=== PATIENT | female | born 1945 | race Caucasian/White ===

== ENCOUNTER 2017-12-22 11:45 | Emergency (ER) | payer OTHER ==
[~2017-12-22] VITALS: Ht 167.6 cm; Wt 90.7 kg
[~2017-12-22 11:45] MED LIST: MASON NATURAL1200 MG PO; NORVASC 5MG TAB5 MG PO; SERTRALINE100 MG PO; VALIUM5 M1 PO; VITAMIN D1000 IU PO
--- NOTE | 2017-12-22 13:48 | RADIOLOGY REPORT ---
EXAMINATION: XR ANKLE, RIGHT CLINICAL INFORMATION: History of fall. Fracture. COMPARISON: None TECHNIQUE: AP, lateral, and mortise views of the right ankle. FINDINGS: Alignment is normal. The talar dome is well-positioned within the intact ankle mortise. Ankle joint space and syndesmotic space are normal. No acute fracture subluxation. A geographic, cortical based, 1.3 cm long lucency with sclerotic border of the lateral aspect of the distal tibial metaphysis is compatible with a nonossifying fibroma. No suspicious bone lesions. There is a large plantar calcaneal enthesophyte. Soft tissues are swollen around the ankle. Minimal atherosclerotic calcification of the dorsalis pedis artery. IMPRESSION: 1. No acute fracture or malalignment at the right ankle. 2. Diffuse soft tissue swelling around the ankle. 3. Large plantar calcaneal enthesophyte.
--- NOTE | 2017-12-22 14:44 | ED GENERAL ADULT ---
History of Present Illness General Chief Complaint: Foot or Ankle Injury Stated Complaint: RIGHT ANKLE PAIN S/P FALL Source: patient Exam Limitations: no limitations Vital Signs & Intake/Output Vital Signs & Intake/Output Vital Signs Date Time Temp Pulse Resp B/P B/P Pulse O2 O2 Flow FiO2 Mean Ox Delivery Rate 12/22 1500 98.2 74 20 140/70 99 Room Air 12/22 1156 98.4 96 20 112/58 96 Room Air Allergies Coded Allergies: NO KNOWN ALLERGIES (10/10/15) Reconcile Medications Amlodipine (Norvasc 5MG Tab) 5 MG TABLET 1 TAB PO DAILY BP (Reported) Cholecalciferol (Vitamin D3) 1,000 UNIT TABLET 1 TAB PO DAILY SUPPLEMENT ( Reported) Diazepam (Valium) 5 MG TABLET 1 TAB PO BID PRN muscle spasms OMEGA-3 FATTY ACIDS/FISH OIL (Fish Oil 1,200 MG Softgel) 360 MG-1,200 MG CAPSULE 1 SGL PO DAILY SUPPLEMENT (Reported) SERTRALINE HCL (Sertraline HCl) 100 MG TABLET 1 TAB PO DAILY DEPRESSION ( Reported) Triage Note: PT TO ED C/O RIGHT ANKLE PAIN S/P FALL LAST NIGHT. PT MISSED 1 STEP COMING DOWN, CAUSING HER TO FALL TO THE GROUND. DENIES HEADSTRIKE. PAIN IS WORSE WITH WEIGHT BEARING. SWELLING NOTED. PT AMBULATED IN AND OUT OF TRIAGE. DECLINING MEDS IN TRIAGE. DECLINING W/C. Triage Nurses Notes Reviewed? yes Onset: Abrupt Duration: day(s): Timing: constant HPI: 72 y/o female with h/o a-fib and HTN presenting with right ankle pain since last night. Reports she was walking down a flight and steps and missed the last step. Tripped and landed on an inverted ankle. Reports that she did not fall to the ground, was able to catch herself. Denies head strike. Denies numbness or paresthesias. (Odalis Lowry) Past History Travel History Traveled to [place] past 21 day No Medical History Any Pertinent Medical History? see below for history Cardiovascular: AFIB, hypertension Surgical History Surgical History: non-contributory Psychosocial History What is your primary language Kinyarwanda Tobacco Use: Quit >30 days ago ETOH Use: denies use Illicit Drug Use: denies illicit drug use Family History Hx Contributory? No (Odalis Lowry) Review of Systems Review of Systems Constitutional: Reports: no symptoms. EENTM: Reports: no symptoms. Respiratory: Reports: no symptoms. Cardiovascular: Reports: no symptoms. GI: Reports: no symptoms. Genitourinary: Reports: no symptoms. Musculoskeletal: Reports: see HPI. Skin: Reports: no symptoms. Neurological/Psychological: Reports: no symptoms. Hematologic/Endocrine: Reports: no symptoms. Immunologic/Allergic: Reports: no symptoms. (Odalis Lowry) Physical Exam Physical Exam General Appearance: well developed/nourished, no apparent distress, alert, awake , comfortable Head: atraumatic, normal appearance Eyes: Bilateral: normal appearance. Neck: normal inspection, full range of motion, no midline tenderness Respiratory: normal breath sounds, chest non-tender, lungs clear Cardiovascular: regular rate/rhythm Gastrointestinal: soft, non-tender Back: normal inspection, normal range of motion, no vertebral tenderness Extremities: on exam of the right ankle there is edema, no erythema, no abrasions, no increased warmth. +TTP over the lateral ankle. Mild decrease in ROM. Sensation intact. Motor strength mildly decreased. Pulses not palpable, but DP and PT are both audible with doppler. Able to bear weight, but ambulates with a limp favoring the left side. Neurologic/Psych: awake, alert, oriented x 3, normal mood/affect Skin: intact, normal color, warm/dry Core Measures ACS in differential dx? No CVA/TIA Diagnosis: No Sepsis Present: No Sepsis Focused Exam Completed? No (Odalis Lowry) Progress Differential Diagnoses I considered the following diagnoses in my evaluation of the patient: [ankle contusion vs sprain vs fx vs dislocation ] Plan of Care: Orders Procedure Date/time Status Durable Medical Equipment 12/22 1445 Active X-ray IMPRESSION: 1. No acute fracture or malalignment at the right ankle. 2. Diffuse soft tissue swelling around the ankle. 3. Large plantar calcaneal enthesophyte. Place in air cast Will f/u with PMD Counseled on supportive care and strict return precautions Initial ED EKG: none (Odalis Lowry) Departure Departure Disposition: HOME OR SELF CARE Condition: Stable Clinical Impression Primary Impression: Right ankle sprain Referrals: Dashawn Molina MD (PCP/Family) Additional Instructions: Keep ankle in air cast for stability. Use motrin as needed for pain. Use ice to help with swelling. Follow up with your primary care provider for re-evaluation. Return to the emergency department for any new or worsening symptoms. Departure Forms: Customer Survey General Discharge Information (Odalis Lowry) PA/MOLD YARD WORKER Co-Sign Statement Statement: ED Attending supervision documentation- x I saw and evaluated the patient. I have also reviewed all the pertinent lab results and diagnostic results. I agree with the findings and the plan of care as documented in the PA's/MOLD YARD WORKER's documentation. [] I have reviewed the ED Record and agree with the PA's/MOLD YARD WORKER's documentation. [] Additions or exceptions (if any) to the PAs/MOLD YARD WORKER's note and plan are summarized below: [] (Harlan WHITE,Jorge) Critical Care Note Critical Care Note Critical Care Time: non-applicable (Odalis Lowry)
[2017-12-22 15:00] VITALS: BP 140/70
== END 2017-12-22 15:01 ==
LOC: ERH 11:45
DX: S93.401A Sprain of unspecified ligament of right ankle, initial encounter (principal); X50.9XXA Other and unspecified overexertion or strenuous movements or postures, initial encounter; Y93.01 Activity, walking, marching and hiking
CPT/HCPCS: 73610-RT